=== PATIENT | female | born 1980 | race Caucasian/White ===

== ENCOUNTER 2020-02-25 20:21 | Emergency (ER) | payer OTHER ==
[2020-02-25] MEDS ORDERED: Adacel (T-DAP) 0.5 ML SYRINGE ONE (20:44)
== END 2020-02-25 21:02 | disposition home or self-care (01) ==
LOC: MADERS 20:21
DX: T63.331A Toxic effect of venom of brown recluse spider, accidental (unintentional), initial encounter (principal); I10 Essential (primary) hypertension; J45.909 Unspecified asthma, uncomplicated; Z79.899 Other long term (current) drug therapy
CPT/HCPCS: 90471; 90715